=== PATIENT | male | born 1935 | race Caucasian/White ===

== ENCOUNTER → 2017-03-03 | Outpatient (CLI) | payer MEDICARE, OTHER ==
[~2017-03-03] MED LIST: AUGMENTIN 875 M1 TAB PO; CENTRUM SILVER1 TA2 PO; LIPITOR10 MG PO; NORCO 325 MG-51 TAB PO; ZOFRAN4 MG PO
[2017-03-03 10:57] LABS: BASO % 0.7 % (0.0-1.0); EOS # 0.2 10*3/uL (0.0-0.4); EOS % 2.8 % (1.0-4.0); HEMATOCRIT 40.7 % (42.0-52.0); HEMOGLOBIN 13.5 g/dl (14.0-18.0); LYMPH # 1.3 10*3/uL (1.3-4.4); LYMPH % 23.5 % (27.0-41.0); MEAN CELL VOLUME 95.1 fl (80.0-94.0); MEAN CORPUSCULAR HGB 31.5 pg (27.0-31.0); MEAN CORPUSCULAR HGB CONC 33.2 g/dl (33.0-37.0); MEAN PLATELET VOLUME 11.6 fl (9.6-12.3); MONO # 0.5 10*3/uL (0.1-1.0); NEUT # 3.6 10*3/uL (2.3-7.9); NEUT % 63.6 % (47.0-73.0); PLATELET COUNT AUTOMATED 154 10*3/uL (130-400); RED BLOOD COUNT 4.28 10*6/uL (4.50-5.90); RED CELL DISTRI WIDTH 12.7 % (0-14.5); WHITE BLOOD COUNT 5.7 10*3/uL (4.8-10.8)
[2017-03-03 11:29] LABS: ALBUMIN 3.7 gm/dl (3.1-4.5); ALKALINE PHOSPHATASE 49 U/L (45-117); BUN 20 mg/dl (7-24); CARBON DIOXIDE 28 mmol/L (21-32); CHLORIDE 108 mmol/L (98-107); CHOLESTEROL 122 mg/dL (<200); EST GLOM FILT AFRICAN AMERICAN > 60 ml/min; GLUCOSE 94 mg/dL (65-99); HDL CHOLESTEROL 46 mg/dl (40-60); LDL CHOLESTEROL 59 mg/dL (9-159); POTASSIUM 4.1 mmol/L (3.5-5.1); SGOT/AST 16 IU/L (3-35); SGPT/ALT 8 U/L (12-78); SODIUM 139 mmol/L (136-145); TOTAL PROTEIN 7.1 gm/dL (6.4-8.2); TRIGLYCERIDES 83 mg/dl (<150); VLDL CHOLESTEROL 17 mg/dL (6-40)
== END | disposition home or self-care (01) ==
LOC: LAB 10:14
PROVIDERS: Internal Medicine
DX: C61 Malignant neoplasm of prostate (principal); E78.00 Pure hypercholesterolemia, unspecified

== ENCOUNTER → 2017-03-23 | Outpatient (CLI) | payer MEDICARE, OTHER ==
[2017-03-23 12:10] LABS: BASO % 0.4 % (0.0-1.0); EOS # 0.1 10*3/uL (0.0-0.4); HEMATOCRIT 37.8 % (42.0-52.0); HEMOGLOBIN 12.7 g/dl (14.0-18.0); LYMPH # 1.4 10*3/uL (1.3-4.4); LYMPH % 20.2 % (27.0-41.0); MEAN CORPUSCULAR HGB 31.9 pg (27.0-31.0); MEAN CORPUSCULAR HGB CONC 33.6 g/dl (33.0-37.0); MEAN PLATELET VOLUME 11.3 fl (9.6-12.3); MONO # 0.6 10*3/uL (0.1-1.0); NEUT # 4.9 10*3/uL (2.3-7.9); NEUT % 69.1 % (47.0-73.0); PLATELET COUNT AUTOMATED 142 10*3/uL (130-400); RED BLOOD COUNT 3.98 10*6/uL (4.50-5.90); RED CELL DISTRI WIDTH 12.4 % (0-14.5); WHITE BLOOD COUNT 7.1 10*3/uL (4.8-10.8)
[2017-03-23 12:47] LABS: ALBUMIN 3.7 gm/dl (3.1-4.5); ALKALINE PHOSPHATASE 52 U/L (45-117); BUN 16 mg/dl (7-24); CHLORIDE 103 mmol/L (98-107); CHOLESTEROL 110 mg/dL (<200); CREATININE 0.96 mg/dL (0.70-1.30); HDL CHOLESTEROL 42 mg/dl (40-60); LDL CHOLESTEROL 53 mg/dL (9-159); POTASSIUM 4.7 mmol/L (3.5-5.1); SGOT/AST 12 IU/L (3-35); SGPT/ALT 8 U/L (12-78); SODIUM 135 mmol/L (136-145); TOTAL PROTEIN 6.9 gm/dL (6.4-8.2); TRIGLYCERIDES 77 mg/dl (<150); VLDL CHOLESTEROL 15 mg/dL (6-40)
== END | disposition home or self-care (01) ==
LOC: LAB 10:57 → CT 11:00
PROVIDERS: Internal Medicine
DX: C34.90 Malignant neoplasm of unspecified part of unspecified bronchus or lung (principal); C61 Malignant neoplasm of prostate; E78.00 Pure hypercholesterolemia, unspecified; Z85.038 Personal history of other malignant neoplasm of large intestine; Z85.46 Personal history of malignant neoplasm of prostate

== ENCOUNTER → 2017-04-19 | Outpatient (CLI) | payer MEDICARE, OTHER | END | disposition home or self-care (01) | LOC: LAB 07:50 | DX: R89.9 Unspecified abnormal finding in specimens from other organs, systems and tissues (principal) ==

== ENCOUNTER → 2017-06-17 | Day surgery (SDC) | payer MEDICARE, OTHER ==
[~2017-06-17] VITALS: Ht 172.7 cm; Wt 74.8 kg
[~2017-06-17] MED LIST changes: +PAXIL20 M1 PO; +SINEMET 25-1001 EACH PO; +VITAMIN D400 UNIT/1 PO
--- NOTE | ~2017-06-17 | O ---
[place], [place] OPERATIVE NOTE [facility]: [id number] UNIT #: [id number] ROOM: DOCTOR: DONYA GARCIA,CHUY BIRTHDATE: [birth year] DOS: PROCEDURE: Colonoscopy with polypectomy. INDICATIONS: History of high risk of rectal polyp. An informed consent was obtained from the patient after indication of procedure, the alternatives and potential complications were explained to him. PROCEDURE MEDICATIONS: Sedation was administered by Anesthesiology Department. Scope used was Olympus pediatric colonoscope, variable stiffness, GIF-180. The depth of insertion was to the cecum, which was identified by the usual landmarks, appendiceal orifice, ileocecal valve and triangular fold, in addition to transillumination of the right lower quadrant. FINDINGS: After adequate sedation, the patient was placed in left lateral decubitus position. Rectal examination showed normal sphincter tone. ____ hemorrhoids. Scope was introduced into the rectum and advanced to the cecum with slight difficulty due to looping in on the sigmoid colon. The prep was adequate. Two polyps were identified in descending colon. A 12 mm polyp removed with the hot mini snare and a 4 mm polyp removed with a cold mini snare. The remaining colon mucosa appeared otherwise normal including polypectomy site and the rectum appeared intact with normal overlying mucosa. Retroflexed views of the rectum were also unremarkable. The scope was then withdrawn after the rectum was decompressed. The patient tolerated the procedure well. IMPRESSION: 1. Descending colon polyps x 2, removed. 2. No evidence of residual polyp in the rectum. PLAN: We will review the histopathology reports and treat the patient accordingly. Office followup will be scheduled 2-3 weeks. CHUY NAQVI MD CM:OPRECORD:OPERATIVE NOTE [id number] CHUY NAQVI MD 06/17/17950 interface
[2017-06-17 08:25] VITALS: BP 150/97
[2017-06-17 09:32] VITALS: BP 127/66
[2017-06-17 09:47] VITALS: BP 124/62
== END | disposition home or self-care (01) ==
LOC: SDC 06-13 09:30
DX: Z86.010 Personal history of colon polyps (principal); D12.4 Benign neoplasm of descending colon; Z87.891 Personal history of nicotine dependence; E78.5 Hyperlipidemia, unspecified; F32.9 Major depressive disorder, single episode, unspecified; G20 Parkinson's disease; Z98.890 Other specified postprocedural states; Z85.46 Personal history of malignant neoplasm of prostate; Z85.038 Personal history of other malignant neoplasm of large intestine; Z79.899 Other long term (current) drug therapy

== ENCOUNTER → 2017-10-25 | Outpatient (CLI) | payer MEDICARE, OTHER | END | disposition home or self-care (01) | LOC: LAB 14:18 | DX: Z12.5 Encounter for screening for malignant neoplasm of prostate (principal); Z85.46 Personal history of malignant neoplasm of prostate ==

== ENCOUNTER 2018-01-20 16:34 | Inpatient (IN) | payer MEDICARE, OTHER ==
[~2018-01-20] VITALS: Ht 167.6 cm; Wt 75.0 kg
[~2018-01-20 16:34] MED LIST changes: +VITAMIN D-32000 UNI1 PO; -VITAMIN D400 UNIT/1 PO
[2018-01-20 16:39] VITALS: BP 126/79
[2018-01-20] MEDS ORDERED: IRON18 MG PO (16:53)
[2018-01-20] MEDS ORDERED: STOOL SOFTENER240 M2 PO (16:54)
[2018-01-20 17:05] LABS: BASO % 0.6 % (0.0-1.0); EOS # 0.2 10*3/uL (0.0-0.4); EOS % 2.2 % (1.0-4.0); HEMATOCRIT 40.5 % (42.0-52.0); HEMOGLOBIN 13.3 g/dl (14.0-18.0); LYMPH # 1.2 10*3/uL (1.3-4.4); LYMPH % 17.2 % (27.0-41.0); MEAN CELL VOLUME 96.7 fl (80.0-94.0); MEAN CORPUSCULAR HGB 31.7 pg (27.0-31.0); MEAN CORPUSCULAR HGB CONC 32.8 g/dl (33.0-37.0); MEAN PLATELET VOLUME 12.2 fl (9.6-12.3); MONO # 0.5 10*3/uL (0.1-1.0); MONO % 7.5 % (3.0-9.0); NEUT # 4.9 10*3/uL (2.3-7.9); NEUT % 72.4 % (47.0-73.0); PLATELET COUNT AUTOMATED 137 10*3/uL (130-400); RED BLOOD COUNT 4.19 10*6/uL (4.50-5.90); RED CELL DISTRI WIDTH 12.7 % (0-14.5); WHITE BLOOD COUNT 6.8 10*3/uL (4.8-10.8)
[2018-01-20 17:07] VITALS: BP 136/79
[2018-01-20 17:25] LABS: ALBUMIN 3.8 gm/dl (3.1-4.5); ALKALINE PHOSPHATASE 51 U/L (45-117); BUN 14 mg/dl (7-24); CHLORIDE 113 mmol/L (98-107); POTASSIUM 3.9 mmol/L (3.5-5.1); SGOT/AST 11 IU/L (3-35); SGPT/ALT 9 U/L (12-78); SODIUM 134 mmol/L (136-145); TOTAL PROTEIN 7.1 gm/dL (6.4-8.2)
[2018-01-20 17:26] LABS: TROPONIN I < 0.015 ng/ml (<0.045)
[2018-01-20 18:35] VITALS: BP 160/90
[2018-01-20] MEDS ORDERED: Sinemet Cr 50/21 TAB PO (18:48)
[2018-01-20] MEDS ORDERED: CITALOPRAM20 MG PO (18:49)
[2018-01-20 20:41] VITALS: BP 133/72
[2018-01-21] VITALS: BP 122/80
[2018-01-21 06:05] LABS: BASO % 0.7 % (0.0-1.0); EOS # 0.2 10*3/uL (0.0-0.4); EOS % 2.8 % (1.0-4.0); HEMATOCRIT 38.4 % (42.0-52.0); HEMOGLOBIN 12.4 g/dl (14.0-18.0); LYMPH # 1.7 10*3/uL (1.3-4.4); LYMPH % 30.8 % (27.0-41.0); MEAN CELL VOLUME 97.5 fl (80.0-94.0); MEAN CORPUSCULAR HGB 31.5 pg (27.0-31.0); MEAN CORPUSCULAR HGB CONC 32.3 g/dl (33.0-37.0); MEAN PLATELET VOLUME 12.2 fl (9.6-12.3); MONO # 0.5 10*3/uL (0.1-1.0); MONO % 8.7 % (3.0-9.0); NEUT # 3.2 10*3/uL (2.3-7.9); NEUT % 56.6 % (47.0-73.0); PLATELET COUNT AUTOMATED 138 10*3/uL (130-400); RED BLOOD COUNT 3.94 10*6/uL (4.50-5.90); RED CELL DISTRI WIDTH 12.6 % (0-14.5); WHITE BLOOD COUNT 5.7 10*3/uL (4.8-10.8)
[2018-01-21 06:40] LABS: ACT PARTIAL THROMBO TIME 23.7 SECONDS (20.8-31.5); INTERNATIONAL NORM RATIO 1.1 (2.0-3.5)
[2018-01-21 06:42] LABS: ALBUMIN 3.4 gm/dl (3.1-4.5); ALKALINE PHOSPHATASE 47 U/L (45-117); BUN 14 mg/dl (7-24); CHLORIDE 112 mmol/L (98-107); CHOLESTEROL 90 mg/dL (<200); CREATININE 0.99 mg/dL (0.70-1.30); FREE T4 0.99 ng/dl (0.76-1.46); HDL CHOLESTEROL 36 mg/dl (40-60); LDL CHOLESTEROL 43 mg/dL (9-159); PHOSPHOROUS 3.2 mg/dL (2.5-4.9); SGOT/AST 7 IU/L (3-35); SGPT/ALT 17 U/L (12-78); TOTAL PROTEIN 6.3 gm/dL (6.4-8.2); TRIGLYCERIDES 57 mg/dl (<150); VLDL CHOLESTEROL 11 mg/dL (6-40)
[2018-01-21 07:04] LABS: POTASSIUM 4.6 mmol/L (3.5-5.1); SODIUM 143 mmol/L (136-145)
[2018-01-21 07:38] LABS: VITAMIN D, 25-HYDROXY 20.3 ng/mL (30-100)
[2018-01-21 08:00] VITALS: BP 180/90
[2018-01-21 08:30] VITALS: BP 112/80
[2018-01-21 12:00] VITALS: BP 176/88
[2018-01-21 16:00] VITALS: BP 155/78
[2018-01-21 20:00] VITALS: BP 148/74
[2018-01-22] VITALS: BP 136/65
[2018-01-22 06:26] LABS: BASO % 0.6 % (0.0-1.0); EOS # 0.2 10*3/uL (0.0-0.4); EOS % 3.2 % (1.0-4.0); HEMATOCRIT 38.1 % (42.0-52.0); HEMOGLOBIN 12.4 g/dl (14.0-18.0); LYMPH # 1.7 10*3/uL (1.3-4.4); LYMPH % 26.7 % (27.0-41.0); MEAN CELL VOLUME 97.4 fl (80.0-94.0); MEAN CORPUSCULAR HGB 31.7 pg (27.0-31.0); MEAN CORPUSCULAR HGB CONC 32.5 g/dl (33.0-37.0); MEAN PLATELET VOLUME 12.2 fl (9.6-12.3); MONO # 0.6 10*3/uL (0.1-1.0); MONO % 9.7 % (3.0-9.0); NEUT # 3.7 10*3/uL (2.3-7.9); NEUT % 59.6 % (47.0-73.0); PLATELET COUNT AUTOMATED 123 10*3/uL (130-400); RED BLOOD COUNT 3.91 10*6/uL (4.50-5.90); RED CELL DISTRI WIDTH 12.7 % (0-14.5); WHITE BLOOD COUNT 6.2 10*3/uL (4.8-10.8)
[2018-01-22 06:55] LABS: ALBUMIN 3.4 gm/dl (3.1-4.5); ALKALINE PHOSPHATASE 44 U/L (45-117); BUN 14 mg/dl (7-24); CHLORIDE 111 mmol/L (98-107); PHOSPHOROUS 3.1 mg/dL (2.5-4.9); POTASSIUM 4.1 mmol/L (3.5-5.1); SGOT/AST 8 IU/L (3-35); SGPT/ALT 18 U/L (12-78); SODIUM 145 mmol/L (136-145); TOTAL PROTEIN 6.3 gm/dL (6.4-8.2)
[2018-01-22 08:00] VITALS: BP 174/74
[2018-01-22 12:00] VITALS: BP 168/82
== END 2018-01-22 13:48 | disposition home or self-care (01) | DRG 312 ==
LOC: ED 16:34 → EDHOLD 17:43 → 4E 18:10
PROVIDERS: Emergency Medicine; Internal Medicine
DX: R55 Syncope and collapse (principal); E44.0 Moderate protein-calorie malnutrition; E87.8 Other disorders of electrolyte and fluid balance, not elsewhere classified; E87.1 Hypo-osmolality and hyponatremia; E86.0 Dehydration; I95.1 Orthostatic hypotension; I25.10 Atherosclerotic heart disease of native coronary artery without angina pectoris; D53.9 Nutritional anemia, unspecified; E78.5 Hyperlipidemia, unspecified; G20 Parkinson's disease; Z92.21 Personal history of antineoplastic chemotherapy; Z85.46 Personal history of malignant neoplasm of prostate; Z85.038 Personal history of other malignant neoplasm of large intestine; Z88.8 Allergy status to other drugs, medicaments and biological substances; Z79.899 Other long term (current) drug therapy; Z90.49 Acquired absence of other specified parts of digestive tract; Z98.1 Arthrodesis status; Z80.8 Family history of malignant neoplasm of other organs or systems; Z85.118 Personal history of other malignant neoplasm of bronchus and lung; Z80.42 Family history of malignant neoplasm of prostate; Z68.26 Body mass index [BMI] 26.0-26.9, adult

== ENCOUNTER → 2018-02-08 | Outpatient (CLI) | payer MEDICARE, OTHER ==
[~2018-02-08] MED LIST changes: +CITALOPRAM20 MG PO; +IRON18 MG PO; +STOOL SOFTENER240 M2 PO; +Sinemet Cr 50/21 TAB PO
== END | disposition home or self-care (01) ==
LOC: CARD 08:51
DX: I08.3 Combined rheumatic disorders of mitral, aortic and tricuspid valves (principal); R55 Syncope and collapse; R06.00 Dyspnea, unspecified

== ENCOUNTER → 2018-05-05 | Outpatient (CLI) | payer MEDICARE, OTHER | END | disposition home or self-care (01) | LOC: LAB 11:06 | DX: C61 Malignant neoplasm of prostate (principal) ==

== ENCOUNTER 2018-08-04 15:26 | Inpatient (IN) | payer MEDICARE, OTHER ==
[~2018-08-04] VITALS: Ht 172.7 cm; Wt 72.2 kg
--- NOTE | ~2018-08-04 | EKG ---
[place], [place] ELECTROCARDIOGRAM REPORT NAME: BRO FARAH UNIT #: [id number] ROOM: 420 DOCTOR: DANNY DRAFT REPORT BIRTHDATE: [birth year] [facility] Test Date: 2018-08-04 Test Time: 16:06:46 Pat Name: BRO FARAH Department: Room: 420 Gender: M [employer] Interviewer: 20 : 1935 Requested By: KEVEN PAVON Order Number: [id number] Reading MD: Paramjit Bob MD Measurements Intervals [place] Rate: 97 P: 29 CA: 167 QRS: -21 QRSD: 83 T: -6 QT: 340 QTc: 432 Interpretive Statements Sinus rhythm Poor precordial R-wave progression Leftward axis Electronically Signed On 08-05-2018 13:37:24 PST by Paramjit Bob MD CM:EKGRPT:ELECTROCARDIOGRAM REPORT [id number] KEVEN DELGADO DRAFT REPORT KEVEN PAVON MD
[2018-08-04 15:28] VITALS: BP 110/73
[2018-08-04] MEDS ORDERED: SINEMET 25-1001 EACH PO (15:33)
[2018-08-04] MEDS ORDERED: MIDODRINE HCL5 M1 PO (15:35)
[2018-08-04 16:22] VITALS: BP 102/74
[2018-08-04 16:24] LABS: BASO % 0.5 % (0.0-1.0); EOS # 0.1 10*3/uL (0.0-0.4); EOS % 1.5 % (1.0-4.0); HEMATOCRIT 42.1 % (42.0-52.0); HEMOGLOBIN 13.8 g/dl (14.0-18.0); LYMPH # 1.1 10*3/uL (1.3-4.4); LYMPH % 17.1 % (27.0-41.0); MEAN CELL VOLUME 94.2 fl (80.0-94.0); MEAN CORPUSCULAR HGB 30.9 pg (27.0-31.0); MEAN CORPUSCULAR HGB CONC 32.8 g/dl (33.0-37.0); MEAN PLATELET VOLUME 11.9 fl (9.6-12.3); MONO # 0.5 10*3/uL (0.1-1.0); MONO % 7.1 % (3.0-9.0); NEUT # 4.8 10*3/uL (2.3-7.9); NEUT % 73.6 % (47.0-73.0); PLATELET COUNT AUTOMATED 171 10*3/uL (130-400); RED BLOOD COUNT 4.47 10*6/uL (4.50-5.90); WHITE BLOOD COUNT 6.5 10*3/uL (4.8-10.8)
[2018-08-04 16:34] LABS: ACT PARTIAL THROMBO TIME 23.5 SECONDS (20.8-31.5); INTERNATIONAL NORM RATIO 1.1 (2.0-3.5)
[2018-08-04 16:44] VITALS: BP 144/82
[2018-08-04 16:51] LABS: ALBUMIN 3.8 gm/dl (3.1-4.5); ALKALINE PHOSPHATASE 55 U/L (45-117); BUN 20 mg/dl (7-24); CHLORIDE 107 mmol/L (98-107); CREATININE 0.97 mg/dL (0.70-1.30); SGOT/AST 12 IU/L (3-35); SGPT/ALT 11 U/L (12-78); SODIUM 142 mmol/L (136-145); TOTAL PROTEIN 7.2 gm/dL (6.4-8.2)
[2018-08-04 16:52] LABS: TROPONIN I < 0.015 ng/ml (<0.045)
[2018-08-04 17:16] VITALS: BP 147/84
[2018-08-04 18:00] VITALS: BP 141/86
[2018-08-04] MEDS ORDERED: SINEMET CR 50-1 EACH PO (18:18)
[2018-08-04 20:00] VITALS: BP 97/65
[2018-08-04 22:28] LABS: BILIRUBIN NEGATIVE (NEGATIVE); BLOOD NEGATIVE (NEGATIVE); CLARITY CLEAR (CLEAR); COLOR YELLOW (YELLOW); GLUCOSE NEGATIVE (NEGATIVE); KETONE TRACE (NEGATIVE); LEUKO ESTERASE NEGATIVE (NEGATIVE); NITRITE NEGATIVE (NEGATIVE); PH 6.5 (5.0-9.0)
[2018-08-04 22:37] LABS: WBC 0-2 wbc/hpf (0-5)
[2018-08-05] VITALS: BP 125/72
[2018-08-05 07:07] LABS: BASO # 0.1 10*3/uL (0.0-0.1); BASO % 0.8 % (0.0-1.0); EOS # 0.2 10*3/uL (0.0-0.4); EOS % 2.8 % (1.0-4.0); HEMATOCRIT 38.1 % (42.0-52.0); HEMOGLOBIN 12.7 g/dl (14.0-18.0); LYMPH # 1.7 10*3/uL (1.3-4.4); LYMPH % 27.9 % (27.0-41.0); MEAN CELL VOLUME 94.5 fl (80.0-94.0); MEAN CORPUSCULAR HGB 31.5 pg (27.0-31.0); MEAN CORPUSCULAR HGB CONC 33.3 g/dl (33.0-37.0); MEAN PLATELET VOLUME 12.1 fl (9.6-12.3); MONO # 0.5 10*3/uL (0.1-1.0); MONO % 8.6 % (3.0-9.0); NEUT # 3.6 10*3/uL (2.3-7.9); NEUT % 59.7 % (47.0-73.0); PLATELET COUNT AUTOMATED 146 10*3/uL (130-400); RED BLOOD COUNT 4.03 10*6/uL (4.50-5.90); WHITE BLOOD COUNT 6.1 10*3/uL (4.8-10.8)
[2018-08-05 07:44] LABS: ALBUMIN 3.4 gm/dl (3.1-4.5); BUN 22 mg/dl (7-24); CHLORIDE 112 mmol/L (98-107); CHOLESTEROL 144 mg/dL (<200); CREATININE 0.82 mg/dL (0.70-1.30); PHOSPHOROUS 3.1 mg/dL (2.5-4.9); POTASSIUM 3.7 mmol/L (3.5-5.1); SGOT/AST 9 IU/L (3-35); SGPT/ALT 8 U/L (12-78); SODIUM 145 mmol/L (136-145); TOTAL PROTEIN 6.2 gm/dL (6.4-8.2); TRIGLYCERIDES 60 mg/dl (<150); VLDL CHOLESTEROL 12 mg/dL (6-40)
[2018-08-05 07:51] LABS: ALKALINE PHOSPHATASE 47 U/L (45-117); HDL CHOLESTEROL 38 mg/dl (40-60); LDL CHOLESTEROL 94 mg/dL (9-159)
[2018-08-05 08:00] VITALS: BP 134/64
[2018-08-05 11:07] LABS: VITAMIN D, 25-HYDROXY 24.7 ng/mL (30-100)
[2018-08-05 12:00] VITALS: BP 103/64
[2018-08-05 16:00] VITALS: BP 135/70
[2018-08-05 20:00] VITALS: BP 126/61; BP 129/84
[2018-08-06] VITALS: BP 172/94
[2018-08-06 08:00] VITALS: BP 140/60
[2018-08-06 12:00] VITALS: BP 163/87
[2018-08-06 16:00] VITALS: BP 143/82
[2018-08-06 20:00] VITALS: BP 157/72
[2018-08-07] VITALS: BP 142/69
[2018-08-07 08:00] VITALS: BP 121/82
[2018-08-07 12:00] VITALS: BP 137/69
[2018-08-07 16:00] VITALS: BP 118/71
[2018-08-07 20:00] VITALS: BP 158/69
[2018-08-08] VITALS: BP 135/53
[2018-08-08 06:34] LABS: BASO % 0.7 % (0.0-1.0); EOS # 0.2 10*3/uL (0.0-0.4); EOS % 3.8 % (1.0-4.0); HEMATOCRIT 34.5 % (42.0-52.0); HEMOGLOBIN 11.4 g/dl (14.0-18.0); LYMPH # 1.7 10*3/uL (1.3-4.4); LYMPH % 31.2 % (27.0-41.0); MEAN CORPUSCULAR HGB 31.1 pg (27.0-31.0); MEAN PLATELET VOLUME 12.3 fl (9.6-12.3); MONO # 0.6 10*3/uL (0.1-1.0); MONO % 10.3 % (3.0-9.0); NEUT % 53.8 % (47.0-73.0); PLATELET COUNT AUTOMATED 129 10*3/uL (130-400); RED BLOOD COUNT 3.67 10*6/uL (4.50-5.90); RED CELL DISTRI WIDTH 12.1 % (0-14.5); WHITE BLOOD COUNT 5.6 10*3/uL (4.8-10.8)
[2018-08-08 06:40] LABS: CREATININE 0.81 mg/dL (0.70-1.30)
[2018-08-08 08:00] VITALS: BP 156/71
[2018-08-08 12:00] VITALS: BP 102/65
[2018-08-08 16:00] VITALS: BP 132/73
[2018-08-08] MEDS ORDERED: Aquaphor T (16:24)
== END 2018-08-08 18:45 | disposition other institution (70) | DRG 312 ==
LOC: ED 15:26 → EDHOLD 16:55 → 4E 16:55
PROVIDERS: Emergency Medicine; Student in an Organized Health Care Education/Training Program; ADMIT Emergency Medicine
PROC: 0HBRXZZ Excision of Toe Nail, External Approach (ICD-10-PCS; principal; 2018-08-07)
DX: I95.1 Orthostatic hypotension (principal); R26.81 Unsteadiness on feet; R32 Unspecified urinary incontinence; L60.2 Onychogryphosis; K59.00 Constipation, unspecified; R73.9 Hyperglycemia, unspecified; G20 Parkinson's disease; Z79.899 Other long term (current) drug therapy; Z80.52 Family history of malignant neoplasm of bladder; Z87.891 Personal history of nicotine dependence

== ENCOUNTER → 2018-09-29 | Outpatient (CLI) | payer MEDICARE, OTHER ==
[~2018-09-29] MED LIST changes: +Aquaphor T; +MIDODRINE HCL5 M1 PO; +SINEMET CR 50-1 EACH PO
[2018-09-29 17:10] LABS: BILIRUBIN NEGATIVE (NEGATIVE); BLOOD NEGATIVE (NEGATIVE); CLARITY SL CLOUDY (CLEAR); COLOR YELLOW (YELLOW); GLUCOSE NEGATIVE (NEGATIVE); KETONE TRACE (NEGATIVE); LEUKO ESTERASE NEGATIVE (NEGATIVE); NITRITE NEGATIVE (NEGATIVE); PH 5.5 (5.0-9.0); SPECIFIC GRAVITY >= 1.030 (1.005-1.030)
[2018-09-29 17:19] LABS: BACTERIA 1+
[2018-09-29 17:20] LABS: EPITHELIAL CELLS 0-2
== END | disposition home or self-care (01) ==
LOC: LAB 14:02
PROVIDERS: Internal Medicine
DX: N39.0 Urinary tract infection, site not specified (principal)

== ENCOUNTER → 2018-10-12 | Outpatient (CLI) | payer MEDICARE, OTHER | END | disposition home or self-care (01) | LOC: LAB 15:50 | DX: C61 Malignant neoplasm of prostate (principal) ==

== ENCOUNTER → 2019-04-13 | Outpatient (CLI) | payer MEDICARE, OTHER | END | disposition home or self-care (01) | LOC: LAB 10:48 | DX: Z85.46 Personal history of malignant neoplasm of prostate (principal) ==

== ENCOUNTER 2019-09-19 14:09 | Emergency (ER) | payer MEDICARE ==
[~2019-09-19] VITALS: Ht 170.1 cm; Wt 81.6 kg
[2019-09-19 14:15] VITALS: BP 160/102
[2019-09-19 16:13] LABS: BACTERIA TRACE; BILIRUBIN NEGATIVE (NEGATIVE); BLOOD NEGATIVE (NEGATIVE); CLARITY CLEAR (CLEAR); COLOR YELLOW (YELLOW); GLUCOSE NEGATIVE (NEGATIVE); KETONE NEGATIVE (NEGATIVE); LEUKO ESTERASE NEGATIVE (NEGATIVE); MUCOUS 1+; NITRITE NEGATIVE (NEGATIVE); PH 6.5 (5.0-9.0); SPECIFIC GRAVITY 1.025 (1.005-1.030); WBC 0-2 wbc/hpf (0-5)
== END 2019-09-19 16:40 | disposition home or self-care (01) ==
LOC: ED 14:09
PROVIDERS: Physician Assistant
DX: M25.511 Pain in right shoulder (principal); E78.00 Pure hypercholesterolemia, unspecified; Z79.899 Other long term (current) drug therapy; W01.0XXA Fall on same level from slipping, tripping and stumbling without subsequent striking against object, initial encounter; Y93.89 Activity, other specified; Y92.89 Other specified places as the place of occurrence of the external cause; Y99.8 Other external cause status

== ENCOUNTER 2019-09-25 15:20 | Inpatient (IN) | payer MEDICARE ==
[2019-09-25] VITALS (7 sets, daily range): BP systolic 150–170; BP diastolic 78–99
[~2019-09-25] VITALS: Ht 165.1 cm; Wt 86.7 kg
[2019-09-25 16:11] LABS: BASO # 0.1 10*3/uL (0.0-0.1); BASO % 0.8 % (0.0-1.0); EOS # 0.1 10*3/uL (0.0-0.4); HEMATOCRIT 39.5 % (42.0-52.0); LYMPH # 1.3 10*3/uL (1.3-4.4); LYMPH % 22.4 % (27.0-41.0); MEAN CELL VOLUME 95.9 fl (80.0-94.0); MEAN CORPUSCULAR HGB 31.6 pg (27.0-31.0); MEAN CORPUSCULAR HGB CONC 32.9 g/dl (33.0-37.0); MEAN PLATELET VOLUME 11.7 fl (9.6-12.3); MONO # 0.5 10*3/uL (0.1-1.0); MONO % 8.2 % (3.0-9.0); NEUT % 66.4 % (47.0-73.0); PLATELET COUNT AUTOMATED 157 10*3/uL (130-400); RED BLOOD COUNT 4.12 10*6/uL (4.50-5.90); RED CELL DISTRI WIDTH 13.1 % (0-14.5)
[2019-09-25] MEDS ORDERED: PAXIL10 MG PO (16:14)
[2019-09-25 16:24] LABS: ACT PARTIAL THROMBO TIME 27.1 SECONDS (20.0-32.1)
[2019-09-25 16:28] LABS: ALBUMIN 4.1 gm/dl (3.1-4.5); ALKALINE PHOSPHATASE 53 U/L (45-117); BUN 21 mg/dl (7-24); CHLORIDE 108 mmol/L (98-107); CREATININE 0.93 mg/dL (0.70-1.30); POTASSIUM 4.1 mmol/L (3.5-5.1); SGOT/AST 11 IU/L (3-35); SGPT/ALT 15 U/L (12-78); SODIUM 142 mmol/L (136-145); TOTAL PROTEIN 7.3 gm/dL (6.4-8.2)
[2019-09-25 16:39] LABS: TROPONIN I < 0.015 ng/ml (<0.045)
[2019-09-25 17:03] LABS: ABG BASE EXCESS 3.3 mmol/L (-2.0-2.0); ARTERIAL BLOOD GAS PH 7.455 (7.35-7.45)
[2019-09-25 21:33] LABS: BILIRUBIN NEGATIVE (NEGATIVE); BLOOD NEGATIVE (NEGATIVE); CLARITY CLEAR (CLEAR); COLOR YELLOW (YELLOW); GLUCOSE NEGATIVE (NEGATIVE); KETONE NEGATIVE (NEGATIVE); LEUKO ESTERASE NEGATIVE (NEGATIVE); NITRITE NEGATIVE (NEGATIVE); SPECIFIC GRAVITY 1.015 (1.005-1.030)
[2019-09-25 21:34] LABS: EPITHELIAL CELLS 0-2; WBC 0-2 wbc/hpf (0-5)
[2019-09-26] VITALS: BP 152/78
[2019-09-26 06:27] LABS: BASO % 0.6 % (0.0-1.0); EOS # 0.2 10*3/uL (0.0-0.4); EOS % 2.3 % (1.0-4.0); HEMATOCRIT 35.6 % (42.0-52.0); HEMOGLOBIN 11.8 g/dl (14.0-18.0); LYMPH # 1.6 10*3/uL (1.3-4.4); LYMPH % 25.6 % (27.0-41.0); MEAN CELL VOLUME 94.2 fl (80.0-94.0); MEAN CORPUSCULAR HGB 31.2 pg (27.0-31.0); MEAN CORPUSCULAR HGB CONC 33.1 g/dl (33.0-37.0); MEAN PLATELET VOLUME 11.8 fl (9.6-12.3); MONO # 0.6 10*3/uL (0.1-1.0); MONO % 9.5 % (3.0-9.0); NEUT # 3.9 10*3/uL (2.3-7.9); NEUT % 61.7 % (47.0-73.0); PLATELET COUNT AUTOMATED 146 10*3/uL (130-400); RED BLOOD COUNT 3.78 10*6/uL (4.50-5.90); RED CELL DISTRI WIDTH 13.1 % (0-14.5); WHITE BLOOD COUNT 6.4 10*3/uL (4.8-10.8)
[2019-09-26 06:46] LABS: ACT PARTIAL THROMBO TIME 27.7 SECONDS (20.0-32.1); INTERNATIONAL NORM RATIO 1.1 (2.0-3.5)
[2019-09-26 07:04] LABS: CHLORIDE 110 mmol/L (98-107)
[2019-09-26 07:16] LABS: ALBUMIN 3.6 gm/dl (3.1-4.5); ALKALINE PHOSPHATASE 43 U/L (45-117); BUN 23 mg/dl (7-24); CHOLESTEROL 160 mg/dL (<200); CREATININE 0.86 mg/dL (0.70-1.30); FREE T4 1.17 ng/dl (0.76-1.46); HDL CHOLESTEROL 42 mg/dl (40-60); LDL CHOLESTEROL 102 mg/dL (9-159); PHOSPHOROUS 3.3 mg/dL (2.5-4.9); SGOT/AST 11 IU/L (3-35); SGPT/ALT 9 U/L (12-78); TOTAL PROTEIN 6.4 gm/dL (6.4-8.2); TRIGLYCERIDES 78 mg/dl (<150); VLDL CHOLESTEROL 16 mg/dL (6-40)
[2019-09-26 07:22] LABS: SODIUM 144 mmol/L (136-145)
[2019-09-26 07:23] LABS: POTASSIUM 3.1 mmol/L (3.5-5.1)
[2019-09-26 08:00] VITALS: BP 160/97
[2019-09-26 12:00] VITALS: BP 158/86
[2019-09-26 16:00] VITALS: BP 134/76
[2019-09-26 20:00] VITALS: BP 180/96
[2019-09-27] VITALS: BP 130/70
[2019-09-27 06:46] LABS: BASO % 0.6 % (0.0-1.0); EOS # 0.2 10*3/uL (0.0-0.4); EOS % 3.9 % (1.0-4.0); HEMATOCRIT 37.2 % (42.0-52.0); HEMOGLOBIN 12.4 g/dl (14.0-18.0); LYMPH # 1.1 10*3/uL (1.3-4.4); LYMPH % 17.9 % (27.0-41.0); MEAN CELL VOLUME 94.4 fl (80.0-94.0); MEAN CORPUSCULAR HGB 31.5 pg (27.0-31.0); MEAN CORPUSCULAR HGB CONC 33.3 g/dl (33.0-37.0); MEAN PLATELET VOLUME 11.8 fl (9.6-12.3); MONO # 0.6 10*3/uL (0.1-1.0); NEUT # 4.3 10*3/uL (2.3-7.9); NEUT % 68.4 % (47.0-73.0); PLATELET COUNT AUTOMATED 146 10*3/uL (130-400); RED BLOOD COUNT 3.94 10*6/uL (4.50-5.90); RED CELL DISTRI WIDTH 13.1 % (0-14.5); WHITE BLOOD COUNT 6.2 10*3/uL (4.8-10.8)
[2019-09-27 06:57] LABS: BUN 16 mg/dl (7-24); CHLORIDE 110 mmol/L (98-107); CREATININE 0.62 mg/dL (0.70-1.30); POTASSIUM 3.7 mmol/L (3.5-5.1); SODIUM 143 mmol/L (136-145)
[2019-09-27 08:00] VITALS: BP 168/90
[2019-09-27] MEDS ORDERED: ATIVAN1 MG PO (11:33)
[2019-09-27] MEDS ORDERED: LISINOPRIL10 M1 PO (11:33)
[2019-09-27 12:00] VITALS: BP 127/78
== END 2019-09-27 13:52 | disposition hospice, home (50) | DRG 72 ==
LOC: ED 15:20 → 4E 17:21 → EDHOLD 17:21 → 4E 18:12 → 5E 09-26 21:36
PROVIDERS: Family Medicine; Internal Medicine; ADMIT Internal Medicine
DX: G93.41 Metabolic encephalopathy (principal); I16.0 Hypertensive urgency; Z66 Do not resuscitate; R26.81 Unsteadiness on feet; F41.9 Anxiety disorder, unspecified; G25.81 Restless legs syndrome; D53.9 Nutritional anemia, unspecified; R73.9 Hyperglycemia, unspecified; E83.41 Hypermagnesemia; E78.5 Hyperlipidemia, unspecified; G20 Parkinson's disease; R32 Unspecified urinary incontinence; I10 Essential (primary) hypertension; F32.9 Major depressive disorder, single episode, unspecified; E87.6 Hypokalemia; Z51.5 Encounter for palliative care; Z79.899 Other long term (current) drug therapy; Z85.038 Personal history of other malignant neoplasm of large intestine; Z85.46 Personal history of malignant neoplasm of prostate; Z85.118 Personal history of other malignant neoplasm of bronchus and lung; Z90.49 Acquired absence of other specified parts of digestive tract; Z92.21 Personal history of antineoplastic chemotherapy; Z98.1 Arthrodesis status; Z87.891 Personal history of nicotine dependence; Z80.52 Family history of malignant neoplasm of bladder